=== PATIENT | male | born 2000 | race Caucasian/White ===

== ENCOUNTER 2024-08-31 17:54 | Inpatient (IN) | payer OTHER, SELFPAY ==
[2024-08-31 18:15] VITALS: BMI 31.5
[2024-08-31] MEDS ORDERED: Milk Of Magnesia 30 ML UDCUP PO PRN (18:45)
[2024-08-31] MEDS ORDERED: traMADol HCl 50 MG TAB PO PRN (18:45)
[2024-08-31] MEDS ORDERED: HYDROcodone/Acetaminophen 5/325 mg Tablet PO PRN (18:45)
[2024-08-31] MEDS ORDERED: Communication Order-Pharmacy FS SCH (18:45)
[2024-08-31] MEDS ORDERED: Morphine 4 MG/ML VIAL SLOW IVP PRN (18:45)
[2024-08-31] MEDS ORDERED: Acetaminophen 325 MG TAB PO PRN (18:45)
[2024-08-31] MEDS ORDERED: Ondansetron PF 4 MG/2 ML Vial SLOW IVP PRN (18:45)
[2024-08-31] MEDS: CEFAZOLIN 2 GM in Sodium Chloride 0.9% 100 ML IVPB SCH (21:29)
[2024-08-31] MEDS: Aspirin 81 mg Enteric Coated Tablet PO SCH (21:29)
[2024-08-31] MEDS ORDERED: Gentamicin 80 MG/2 ML VIAL IM SCH (22:00)
[2024-08-31] MEDS: Gentamicin Sulfate 80 MG in Premix 1 BAG IVPB SCH (22:18)
[2024-09-01] MEDS ORDERED: Meperidine HCl/PF 25 MG (1 mL) VIAL ONE (06:39)
[2024-09-01] MEDS ORDERED: Famotidine/PF 20 mg/2ml Vial ONE (06:39)
[2024-09-01] MEDS ORDERED: Bupivacaine PF 0.5% 30 ML VIAL ONE (06:46)
[2024-09-01] MEDS ORDERED: Bacitracin Zinc Ointment 30 gm TUBE ONE (06:46)
[2024-09-01] MEDS ORDERED: Midazolam HCl 2 mg/2 ml Vial ONE (06:50)
[2024-09-01] MEDS ORDERED: PROPOFOL 20 ML ONE (06:59)
[2024-09-01] MEDS ORDERED: fentaNYL 50 mcg/mL 1 mL Vial ONE ×2 (06:59→07:32)
[2024-09-01] MEDS ORDERED: Lidocaine 2% PF 5 ML VIAL ONE (07:00)
[2024-09-01] MEDS: FLU (Fluarix Triv) TS24-25(6MOS UP)/PF 45 MCG/0.5 ML Syringe IM ONE (07:26)
[2024-09-01] MEDS ORDERED: Ondansetron PF 4 MG/2 ML Vial ONE (07:35)
[2024-09-01] MEDS ORDERED: Dexamethasone 4 mg/ml Vial ONE (07:35)
[2024-09-01] MEDS ORDERED: Ketorolac Tromethamine 30 MG (1 mL) VIAL ONE (07:35)
[2024-09-01] MEDS ORDERED: Mineral Oil Sterile 10 ML VIAL ONE (07:48)
[2024-09-01] MEDS: TETANUS, DIPHTHERIA TOX,ADULT (TDVAX) 0.5 ML VIAL IM ONE (09:44)
[2024-09-01 19:14] VITALS: BP 149/81; TEMP 98.2
== END 2024-09-01 21:15 | disposition home or self-care (01) | DRG 514 ==
LOC: T4-A 17:54
PROVIDERS: ADMIT Orthopaedic Surgery Hand Surgery; ATTEND Orthopaedic Surgery Hand Surgery
PROC: 0PBT0ZZ Excision of Right Finger Phalanx, Open Approach (ICD-10-PCS; principal; 2024-09-01)
PROC: 0HRFX73 Replacement of Right Hand Skin with Autologous Tissue Substitute, Full Thickness, External Approach (ICD-10-PCS; 2024-09-01)
PROC: 0HQQXZZ Repair Finger Nail, External Approach (ICD-10-PCS; 2024-09-01)
PROC: 0HBDXZZ Excision of Right Lower Arm Skin, External Approach (ICD-10-PCS; 2024-09-01)
DX: S62.604B Fracture of unspecified phalanx of right ring finger, initial encounter for open fracture (principal); X58.XXXA Exposure to other specified factors, initial encounter
CPT/HCPCS: 90714; A6258; J0665; J1100; J1580; J1885; J2001; J2175; J2250; J2405; J2704; J3010; J3490